=== PATIENT | female | born 1995 | race Two or more races ===

== ENCOUNTER 2023-11-26 01:02 | Emergency (ER) | payer OTHER ==
[~2023-11-26] VITALS: Ht 160 cm; Wt 65.8 kg
[2023-11-26] MEDS ORDERED: FAMOTIDINE/PF 20 MG/2 ML VIAL IV PUSH STA (01:27)
[2023-11-26] MEDS ORDERED: PROMETHAZINE HCL 50 MG/ML AMPUL IM STA (01:27)
[2023-11-26] MEDS ORDERED: DEXTROSE 5 % AND 0.9 % NACL 1,000 ML IV ONE (01:30)
[2023-11-26 02:19] LABS: HEMATOCRIT 42.8 % (36.0-45.00); MEAN CELL VOLUME 91.5 fL (80.00-100.00); PLATELET COUNT 239 K/uL (150-450); RED BLOOD COUNT 4.68 M/uL (4.00-6.00); RED CELL DISTRIBUTION WIDTH 13.8 % (11.5-14.5)
[2023-11-26 02:31] LABS: AMYLASE 58 U/L (25-115); ANION GAP 13 (10.0-20.0); BLOOD UREA NITROGEN 12 mg/dL (7-18); BUN CREA RATIO 12 (7.0-25.0); CALCIUM 9.7 mg/dL (8.5-10.1); CARBON DIOXIDE 25 mEq/L (21-32); CHLORIDE 104 mmol/L (98-107); GLUCOSE FASTING 147 mg/dL (65-100); LIPASE 12 U/L (13-75); OSMOLALITY SERUM 278 MOSM/KG (275-295); POTASSIUM 3.63 mEq/L (3.5-5.1); SODIUM 138 mmol/L (136-145)
[2023-11-26 02:41] LABS: HCG QUANTITATIVE < 1 mUI/mL (1-3)
== END 2023-11-26 03:23 ==
LOC: ER 01:02
PROVIDERS: General Practice
DX: R11.10 Vomiting, unspecified (principal)